=== PATIENT | female | born 1995 | race Two or more races ===

== ENCOUNTER 2018-12-29 01:58 | Inpatient (IN) | payer MEDICAID ==
[~2018-12-29] VITALS: Ht 162.6 cm; Wt 76.2 kg
[2018-12-29] MEDS ORDERED: LORazepam 2 MG TABLET PO PRN (04:30)
[2018-12-29] MEDS ORDERED: ZOLPIDEM TARTRATE 10 MG TABLET PO PRN (04:30)
[2018-12-29] MEDS ORDERED: QUEtiapine FUMARATE 100 MG TABLET PO PRN (04:30)
[2018-12-29 04:50] VITALS: BP 105/63
[2018-12-29] MEDS ORDERED: INFLUENZA VIRUS VACCINE QVS 2019-20 (3YR+)/PF 60 MCG/0.5 ML SYRINGE IM ONE (05:45)
[2018-12-29 08:29] VITALS: BP 112/63
[2018-12-29] MEDS ORDERED: CloNIDine HCL 0.1 MG TABLET PO PRN (16:00)
[2018-12-29] MEDS ORDERED: MAGNESIUM HYDROXIDE SUSPENSION 30 ML UDCUP PO PRN (16:00)
[2018-12-29] MEDS ORDERED: ONDANSETRON HCL 4 MG TABLET PO PRN (16:00)
[2018-12-29] MEDS ORDERED: LOPERAMIDE HCL 2 MG CAPSULE PO PRN (16:00)
[2018-12-29] MEDS ORDERED: NICOTINE 14 MG/24 HOUR PATCH TD PRN (16:00)
[2018-12-29] MEDS ORDERED: GuaiFENesin/D-METHORPHAN [SUGAR-FREE] 200-20MG/10 ML SYRUP UDCUP PO PRN (16:00)
[2018-12-29] MEDS ORDERED: IBUPROFEN 400 MG TABLET PO PRN (16:00)
[2018-12-29] MEDS ORDERED: MAG HYDROX/AL HYDROX/SIMETH ES 30 ML SUSPENSION UDCUP PO PRN (16:00)
[2018-12-29] MEDS ORDERED: PETROLATUM,WHITE 28 GM JELLY TP PRN (16:00)
[2018-12-29] MEDS ORDERED: ACETAMINOPHEN 325 MG TABLET PO PRN (16:00)
[2018-12-29] MEDS ORDERED: ALBUTEROL SULFATE HFA 90 MCG/PUFF 8 GM INHALER IH PRN (16:00)
[2018-12-29] MEDS ORDERED: DOCUSATE SODIUM 100 MG CAPSULE PO PRN (16:00)
[2018-12-29 16:09] VITALS: BP 109/60
[2018-12-29] MEDS: LURASIDONE HCL 40 MG TABLET PO SCH (16:35)
[2018-12-30 06:25] VITALS: BP 120/67
[2018-12-30] MEDS: LURASIDONE HCL 40 MG TABLET PO SCH ×2 (06:40→06:45)
[2018-12-30 07:18] LABS: BASOPHILS % (AUTO) 0.6 % (0.0-2.0); EOSINOPHILS % (AUTO) 4.5 % (1.0-6.0); HEMATOCRIT 40.6 % (36-46); HEMOGLOBIN 13.8 g/dL (12.0-16.0); LYMPHOCYTES # (AUTO) 2.6 K/uL (1.0-4.8); LYMPHOCYTES % (AUTO) 39.1 % (22.0-44.0); MEAN CORPUSCULAR HGB CONC 33.9 G/dL (31.0-37.0); MEAN CORPUSCULAR VOLUME 91 fL (80-100); MONOCYTES # (AUTO) 0.4 K/uL (0.1-1.0); MONOCYTES % (AUTO) 6.8 % (2.0-9.0); NEUTROPHILS # (AUTO) 3.2 K/uL (1.8-7.7); PLATELET COUNT (AUTO) 337 K/uL (150-450); RED BLOOD CELL COUNT(AUTO) 4.44 MIL/uL (4.00-5.20); RED CELL DISTRIBUTION WIDTH 13.2 % (11.5-14.5)
[2018-12-30 07:59] LABS: HEMOGLOBIN A1C 5.3 % (4.5-6.2)
[2018-12-30 08:24] VITALS: BP 114/68
[2018-12-30 08:27] LABS: ALANINE AMINOTRANSFERASE 17 U/L (12-78); ALKALINE PHOSPHATASE 62 U/L (46-116); ANION GAP 9 mmol/L (8-16); ASPARTATE AMINOTRANSFERASE 14 U/L (15-37); CALCIUM, TOTAL 9.1 mg/dL (8.8-10.5); CARBON DIOXIDE 27 mmol/L (22-29); CHLORIDE 104 mmol/L (98-107); CHOL/HDL RATIO 4.6 (3.9-5.7); CHOLESTEROL 166 mg/dL (131-200); CREATININE 0.72 mg/dL (0.60-1.30); GLOMERULAR FILTR. RATE CALC > 60 mL/min (>60); GLUCOSE,RANDOM 88 mg/dL (70-110); HDL CHOLESTEROL 36 mg/dL (40-60); POTASSIUM 3.8 mmol/L (3.5-5.1); SODIUM SERUM 140 mmol/L (136-145); THYROID STIMULATING HORMONE 0.43 uIU/mL (0.36-3.74)
[2018-12-30 08:40] LABS: ALBUMIN 3.5 g/dL (3.4-5.0); BILIRUBIN,TOTAL 0.3 mg/dL (0.1-1.0); LDL CHOL (CALC.) 114 mg/dL (0-130); TRIGLYCERIDES 82 mg/dL (15-150); UREA NITROGEN, BLOOD 8 mg/dL (7-18)
[2018-12-30 17:10] VITALS: BP 126/76
[2018-12-31 06:34] VITALS: BP 123/62
[2018-12-31] MEDS: LURASIDONE HCL 40 MG TABLET PO SCH (06:59)
[2018-12-31 08:25] VITALS: BP 121/60
[2018-12-31] MEDS ORDERED: LURA40 PO ×2 (09:53→10:39)
== END 2018-12-31 12:45 | disposition home or self-care (01) | DRG 753 ==
LOC: B3A 05:00
DX: F31.4 Bipolar disorder, current episode depressed, severe, without psychotic features (principal); R45.851 Suicidal ideations; F10.10 Alcohol abuse, uncomplicated; F14.10 Cocaine abuse, uncomplicated; F15.10 Other stimulant abuse, uncomplicated; Z81.8 Family history of other mental and behavioral disorders
CPT/HCPCS: 83036; 84443